=== PATIENT | female | born 1945 | race Caucasian/White ===

== ENCOUNTER 2023-09-08 04:06 | Inpatient (IN) | payer MEDICARE, SELFPAY ==
[2023-09-07 19:15] VITALS: BP 183/98
[2023-09-07 19:31] LABS: % Basophils 0.2 % (0-2); % Eosinophils 0.1 % (0-6); % Immature Granulocytes 0.6 % (0-0.5); % Lymphocytes 3.4 % (20.5-51.1); % Monocytes 3.6 % (1.7-9.3); % Neutrophils 92.1 % (42.2-75.2); Absolute Basophils 0.1 10^3/uL (0-0.2); Absolute Immature Granulocytes 0.1 10^3/uL (0-0.05); Absolute Lymphocytes 0.7 10^3/uL (1.2-3.4); Absolute Monocytes 0.8 10^3/uL (0.1-0.6); Absolute Neutrophils 19.7 10^3/uL (1.4-6.5); Hematocrit 35.6 % (37.0-47.0); Hemoglobin 12.7 g/dL (12.0-16.0); Mean Corp Hgb Conc. 35.7 g/dL (33.0-37.0); Mean Corpuscular Hgb 31.2 pg (27.0-31.0); Mean Corpuscular Volume 87.5 fL (81.0-99.0); Nucleated Red Blood Cells % 0 %; Platelet Count 278 10^3/uL (130-400); Red Blood Cell Count 4.07 10^6/uL (4.20-5.40); Red Cell Dist. Width 12.3 % (11.5-14.5); White Blood Cell Count 21.4 10^3/uL (4.8-10.8)
[2023-09-07 19:46] LABS: Lactic Acid 2.4 mmol/L (0.7-2.0)
[2023-09-07 19:51] LABS: ALT (SGPT) 16 U/L (0-35); AST (SGOT) 21 U/L (14-36); Alkaline Phosphatase 64 U/L (38-126); Blood Urea Nitrogen 25 mg/dl (7-17); Calcium 9.8 mg/dl (8.4-10.2); Carbon Dioxide 25 mmol/L (22-30); Chloride 97 mmol/L (98-107); Glucose 315 mg/dl (70-99); Potassium 4.3 mmol/L (3.5-5.1); Sodium 136 mmol/L (135-145); Total Bilirubin 1.1 mg/dl (0.2-1.3); Total Protein 6.9 g/dl (6.3-8.2); eGFR > 60.00
[2023-09-07] MEDS: ZOFRAN 4 MG IV (20:29)
[2023-09-07 20:40] VITALS: BMI 26.3
[2023-09-07 22:44] VITALS: BP 128/41
[2023-09-07 23:00] VITALS: BP 134/54
[2023-09-07 23:16] LABS: Urine Albumin 1+ (Neg - Trace); Urine Bilirubin Negative (Negative); Urine Character Clear (Clear); Urine Color Yellow; Urine Glucose 3+ (Negative); Urine Ketone 2+ (Negative); Urine Leukocyte Trace (Negative); Urine Nitrite Negative (Negative); Urine Occult Blood Trace (Negative); Urine Specific Gravity 1.015 (<1.030); Urine Urobilinogen Negative (Neg - 1+)
[2023-09-07 23:39] LABS: Urine Squamous Cell >30 /LPF (Few)
[2023-09-07 23:40] LABS: Urine Amorphous Seen; Urine Bacteria Moderate (Negative)
[2023-09-08] VITALS (10 sets, daily range): BP systolic 136–180; BP diastolic 54–79; BMI 26.2
--- NOTE | 2023-09-08 00:04 | ED.GENMED ---
History of Present Illness
General
Chief Complaint: Abdominal Symptoms
Source: patient
Exam Limitations: none
Time Seen by Provider: 09/07/23 21:00
Nursing documentation reviewed up to this point in time: agreed with
Travel History
Have you had any contact with someone who has COVID-19?: No
Do you have any symptoms of coronavirus? Fever > 100 degrees, chills, cough, shortness of breath, sore throat, loss of taste or smell, muscle aches, or headache?: No
History of Present Illness
History of Present Illness:
Patient diagnosed with urinary tract infection and started on antibiotics yesterday, presents to ED secondary to nausea, vomiting, and diarrhea, along with 'not feeling well'. Patient states that her symptoms started last week, similar to when she
has had UTI in the past. Patient denies fever or chills. Denies loss of appetite. Denies inability to urinate. Denies back pain. Denies abdominal pain.
Past History
Past History
ED Past Medical History: HTN, Hypercholesterolemia, NIDDM and Other (DVT, UTI,)
ED Past Surgical History: Other (neck abscess, bilateral cataract surgery)
Social History
Tobacco: Former smoker
Alcohol: None
Drug: None
Personal:
Living: with family
Review of Systems
Review of Systems
Allergies reviewed?: Yes
All Other Systems: ROS reviewed and negative except as documented in HPI and ROS
Constitutional: Reports chills; Denies fever
EENT: Reports no symptoms
Respiratory: Reports no symptoms
Cardiac: Reports no symptoms
ABD/GI: Reports nausea, vomiting and diarrhea; Denies abdominal pain
: Reports no symptoms
Musculoskeletal: Reports no symptoms; Denies back pain
Skin: Reports no symptoms
Neurological: Reports no symptoms
Phy Exam
Physical Exam
Physical Exam:
Physical Exam
General: mild distress, not acutely ill. afebrile
Head: nc/at. eomi
Neck: supple. no meningeal signs.
Heart: s1/s2 regular rate and rhythm, no murmur. equal radial pulses.
Lungs: no acute respiratory distress. clear bilaterally
Abdomen: normal bowel sounds. not tender.
Neuro: alert and oriented. no focal neurological deficits
Skin: no rash
Psychiatric: well kept. interactive and cooperative
Extremities: no edema. no calf tenderness.
Course
Orders/Labs/Results
Orders:
Orders
09/07/23 19:25
Complete Blood Count/With Diff Urgent
Comprehensive Metabolic Panel Urgent
Lactic Acid Urgent
09/07/23 20:27
Ondansetron Injectable [Zofran] 4 mg .ROUTE .STK-MED ONE
09/07/23 20:28
Ondansetron Injectable [Zofran] 4 mg IV NOW STA
09/07/23 21:56
Straight cath- Treatment ONCE
09/07/23 22:03
Blood Culture Q30M
JOVITA Source: Blood/Venous
Specimen Description:
09/07/23 22:58
Urinalysis Reflex To Culture Urgent
Date Specimen was Collected: 09/07/23
Time Specimen was Collected: 22:57
Urine Microscopic Reflex Cult Urgent
Blood Culture Q30M
JOVITA Source: Blood/Venous
Specimen Description:
Urine Culture Urgent
JOVITA Source: U
Specimen Description:
Date Specimen was Collected: 09/07/23
Time Specimen was Collected: 22:57
09/07/23 23:40
COVID-19 Antigen Urgent
Source: Nasal Swab
Influenza A+B Rapid Molecular Urgent
JOVITA Source: Nasal Swab
Specimen Description:
09/08/23 00:04
0.9% Sodium Chloride 500 ml [Nss] 500 ml IV BOLUS
CefTRIAXone [Rocephin] 1,000 mg IV NOW STA
09/08/23 00:11
Sterile Water [Sterile Water For Injection] 10 ml .ROUTE .STK-MED ONE
09/08/23 00:28
Lactic Acid Urgent
Abnormal Lab Results
09/07/23 09/07/23
19:25 22:58
WBC 21.4 H 10^3/uL
(4.8-10.8)
RBC 4.07 L 10^6/uL
(4.20-5.40)
Hct 35.6 L %
(37.0-47.0)
MCH 31.2 H pg
(27.0-31.0)
MPV 11.0 H fL
(7.4-10.4)
Abs Immat Gran (auto) 0.1 H 10^3/uL
(0-0.05)
Absolute Neuts (auto) 19.7 H 10^3/uL
(1.4-6.5)
Absolute Lymphs (auto) 0.7 L 10^3/uL
(1.2-3.4)
Absolute Monos (auto) 0.8 H 10^3/uL
(0.1-0.6)
Immature Gran % 0.6 H %
(0-0.5)
Neutrophils % 92.1 H %
(42.2-75.2)
Lymphocytes % 3.4 L %
(20.5-51.1)
Chloride 97 L mmol/L
(98-107)
BUN 25 H mg/dl
(7-17)
Glucose 315 H mg/dl
(70-99)
Lactic Acid 2.4 H mmol/L
(0.7-2.0)
Urine Ketones 2+ A
(Negative)
Ur Occult Blood Reflex Trace A
(Negative)
Leukocyte Esterase Rfl Trace A
(Negative)
Urine RBC 3-6 A /HPF
(0-2)
Urine Bacteria (Reflex) Moderate A
(Negative)
Urine Glucose 3+ A
(Negative)
Urine Albumin (Reflex) 1+ A
(Neg - Trace)
09/07/23 19:25
09/07/23 19:25
Vital Signs
Initial and Last Documented VS:
Initial Vital Signs
Temp Pulse Resp BP Pulse Ox
98.3 F 96 18 183/98 95
09/07/23 19:15 09/07/23 19:15 09/07/23 19:15 09/07/23 19:15 09/07/23 19:15
Last Documented Vital Signs
Temp Pulse Resp BP Pulse Ox
99.2 F 80 15 142/54 95
09/07/23 20:40 09/08/23 02:30 09/08/23 02:30 09/08/23 00:00 09/08/23 02:30
MDM/Problems Addressed
MDM/Problems Addressed:
History and exam concerning for UTI, with development of bacteremia. Patient will be admitted for IV antibiotics.
*Critical Care Note
Total Time (30-74mins, 75-104mins- exclusive of procedures): Not Applicable
ED Attending Note
-
Portions of this chart may have been created with voice recognition software.� Occasional wrong word or��sound alike� substitutions may have occurred due to the inherent limitations of voice recognition software.
Discharge Plan
Departure
Patient Disposition: Admit
Date of Disposition: 09/08/23
Time of Disposition: 00:25
Admit to: Telemetry
Presentation/result/management discussed w/ accepting MD/DO: Hospitalist
Discharge Problem:
Sepsis, Acute UTI
Prescriptions:
No Action
amlodipine 5 MG tablet
5 mg PO DAILY
Januvia 100 MG tablet
100 mg PO DAILY
methenamine hippurate 1 GRAM tablet
1 g PO DAILY
metformin 1,000 MG tablet
1,000 mg PO BID
glimepiride 4 MG tablet
4 mg PO BID
lisinopril 40 MG tablet
40 mg PO DAILY
cyanocobalamin (vitamin B-12) [Vitamin B-12] 1,000 mcg Tablet Extended Release
1,000 mcg PO DAILY
aspirin 81 mg Tablet,Delayed Release (Dr/Ec)
81 mg PO DAILY
Ferretts IPS 40 mg/15 mL Liquid
10 mg PO DAILY
Patient Comments:
Pt states she is prescribed but due to side effects pt started taking every other day and then stopped.
cholecalciferol (vitamin D3) [Vitamin D3] 25 mcg (1,000 unit) Tablet
25 mcg PO DAILY
lorazepam 0.5 mg Tablet
0.5 mg PO HS
pantoprazole 40 mg Tablet,Delayed Release (Dr/Ec)
40 mg PO DAILY
rosuvastatin 20 mg Tablet
20 mg PO DAILY
acetaminophen 325 mg tablet
650 mg PO Q4 PRN (Reason: mild pain)
Referrals:
Leidy Friend MD [Family Provider] -
Interventions
Interventions:
*Risk Screen - Suicide Last Done: 09/07/23 19:15
*General Assessment Last Done: 09/07/23 19:15
*Neglect/Abuse Screening Last Done: 09/07/23 19:15
ED- Fall Risk Assessment Last Done: 09/07/23 20:59
*ED COVID-19 Vaccine History Last Done: 09/07/23 20:43
[facility] Assessment Last Done: 09/07/23 20:59
[2023-09-08 00:08] LABS: COVID-19 Antigen Negative (Negative)
[2023-09-08] MEDS: ROCEPHIN 1000 MG IV ×2 (00:15→23:06)
[2023-09-08] MEDS: NSS 500 IV (00:23)
--- NOTE | 2023-09-08 00:40 | HPS.HSE ---
Family Physician
-
Family Physician: Leidy Friend
Chief Complaint
-
Nausea and soft stool
History of Present Illness
78F HX recurrent UTI on Hiprex with onset of nausea since last . Usually nausea is indicative of UTI for her. Never had dysuria on frequency. Anne was Dx-ed UTI yesterday and started on PO ABx one dose. morning she had loose BM about 5
times with intractable nausea prompted her to visit ER with daughter.
She felt better following IVF at ER
Received first dose of IV CFTX
Medical History
Past Medical History
Past Medical History: Reports Other
Additional Past Medical History:
Essential hypertension
Hyperlipidemia
Diabetes mellitus
Recurrent UTIs
DVT
Past Surgical History: Reports Other
Additional Past Surgical History:
Pharyngeal Abscess
bilateral cataract surgery
Social History
Tobacco: Former Smoker
Alcohol: None
Drug: None
Personal:
Living: With Family
Family History
Family History: Not pertinent
Allergies / Home Medications
Allergies reflects when Allergies were last updated in [employer].
Home Medications with original date entered in [employer]
Allergy/Medication List:
Allergies
Allergy/AdvReac Type Severity Reaction Status Date / Time
No Known Allergies Allergy Verified 09/07/23 19:14
Home Medications
amlodipine 5 mg tablet 5 mg PO DAILY Blood pressure 05/18/14
sitagliptin phosphate 100 mg tablet (Januvia) 100 mg PO DAILY Diabetes 05/18/14
glimepiride 4 mg tablet 4 mg PO BID Diabetes 10/27/21
lisinopril 40 mg tablet 40 mg PO DAILY Blood pressure 10/27/21
metformin 1,000 mg tablet 1,000 mg PO BID Diabetes 10/27/21
methenamine hippurate 1 gram tablet 1 g PO DAILY Urinary issue 10/27/21
aspirin 81 mg tablet,delayed release 81 mg PO DAILY 04/01/22
cholecalciferol (vitamin D3) 25 mcg (1,000 unit) tablet (Vitamin D3) 25 mcg PO DAILY 04/01/22
cyanocobalamin (vitamin B-12) 1,000 mcg tablet,extended release (Vitamin B-12 ER) 1,000 mcg PO DAILY 04/01/22
iron succinyl-protein complex 40 mg/15 mL oral liquid (Ferretts IPS) 10 mg PO DAILY 04/01/22
acetaminophen 325 mg tablet 650 mg PO Q4 PRN mild pain 09/07/23
lorazepam 0.5 mg tablet 0.5 mg PO HS 09/07/23
pantoprazole 40 mg tablet,delayed release 40 mg PO DAILY 09/07/23
rosuvastatin 20 mg tablet 20 mg PO DAILY 09/07/23
Review of Systems
-
Constitutional: Reports No Symptoms
EENT: Reports No Symptoms
Respiratory: Reports No Symptoms
Cardiac: Reports No Symptoms
Abdomen/GI: Reports No Symptoms
: Denies Dysuria or Frequency
Musculoskeletal: Reports No Symptoms
Skin: Reports No Symptoms
Neurological: Reports Dizzy and Other (nausea )
Endocrine: Reports No Symptoms
Hematologic/Lymphatic: Reports No Symptoms
Psych: Reports No Symptoms
Physical Exam
Vital Signs
Vital Signs
Temp Pulse Resp BP Pulse Ox
99.2 F 93 27 134/54 96
09/07/23 20:40 09/07/23 23:30 09/07/23 23:30 09/07/23 23:00 09/07/23 23:46
Physical Exam
General: No Apparent Distress and Other (not toxic looking ); No Fever
HEENT: NormoCephalic and Anicteric
Respiratory: Clear and Other (tachynic ); No Wheezes, Rales or Rhonchi
Cardiac: S1/S2 and Regular Rhythm; No Tachycardia
GI: Soft, Non Tender, Non Distended and Normal Bowel Sounds
Genito-urinary: No costovertebral tender
Musculoskeletal: No Edema
Skin: Warm
Neuro: AO x 3
Psych: Calm
Laboratory Results
-
09/07/23 19:25
09/07/23 19:25
Laboratory Results
Lactic Acid 2.4 mmol/L (0.7-2.0) H 09/07/23:25
Total Bilirubin 1.1 mg/dl (0.2-1.3) 09/07/23 19:25
AST 21 U/L (14-36) 09/07/23:25
ALT 16 U/L (0-35) 09/07/23:25
Alkaline Phosphatase 64 U/L (38-126) 09/07/23 19:25
Impression/Plan
-
Reviewed VS: T 99.2 BP 180/98 -->135/55 HR 93 Tachypneic POx 96 on 2 L
Data
WCC 21
Cl 97
BUN 25
Nl Cr eGFR > 60
BG 315
Pending LA
UA suspected UTI
BCx sent
UCx sent
NEG Covid Ag
ASSESSMENT & PLAN
Sepsis ( tachypneic, WCC > 10) due to recurrent UTI
HX taveras ABx sen Klebsiella POS UCx
Recurrent UTIs
- BCx, UCx
- IV CFTX
- Held Hiprex
- IV NS s/p 1 L septic bolus followed by 100/H
- Trend T, WCC
Improved Nausea with IVF
- cont IVF
Essential hypertension
- cont. Lisinopril and Norvasc
Hyperlipidemia
- cont pravastatin
DMT2
- held Metformin
- cont. Januvia
- add ISS low
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
DVT Px: SCD
Code: Full
IP TLM
[2023-09-08 00:48] LABS: Lactic Acid 1.6 mmol/L (0.7-2.0)
[2023-09-08 05:23] LABS: Glucose - Point of Care 161 mg/dl (70-99)
[2023-09-08 05:34] LABS: % Basophils 0.2 % (0-2); % Eosinophils 0.1 % (0-6); % Immature Granulocytes 0.5 % (0-0.5); % Lymphocytes 6.7 % (20.5-51.1); % Monocytes 5.1 % (1.7-9.3); % Neutrophils 87.4 % (42.2-75.2); Absolute Immature Granulocytes 0.1 10^3/uL (0-0.05); Absolute Monocytes 0.8 10^3/uL (0.1-0.6); Absolute Neutrophils 13.5 10^3/uL (1.4-6.5); Hematocrit 34.7 % (37.0-47.0); Hemoglobin 12.1 g/dL (12.0-16.0); Mean Corp Hgb Conc. 34.9 g/dL (33.0-37.0); Mean Corpuscular Hgb 30.3 pg (27.0-31.0); Nucleated Red Blood Cells % 0 %; Platelet Count 286 10^3/uL (130-400); Red Blood Cell Count 3.99 10^6/uL (4.20-5.40); Red Cell Dist. Width 12.3 % (11.5-14.5); White Blood Cell Count 15.5 10^3/uL (4.8-10.8)
[2023-09-08] MEDS: NSS 1000 IV ×2 (05:42→18:21)
--- NOTE | 2023-09-08 05:52 | PTCARENOTE ---
pt arrived from ed, aaox3, tele placed, VSS- BP elevated at 164/66 manually- NAREN Christopher notified, see MAR and assessment. call aceves within reach.
[2023-09-08 05:59] LABS: ALT (SGPT) 15 U/L (0-35); AST (SGOT) 23 U/L (14-36); Alkaline Phosphatase 61 U/L (38-126); Blood Urea Nitrogen 23 mg/dl (7-17); Calcium 9.4 mg/dl (8.4-10.2); Carbon Dioxide 26 mmol/L (22-30); Chloride 101 mmol/L (98-107); Estimated Creatinine Clearance 49 ml/min; Glucose 186 mg/dl (70-99); Potassium 4.1 mmol/L (3.5-5.1); Sodium 139 mmol/L (135-145); Total Bilirubin 0.9 mg/dl (0.2-1.3); Total Protein 6.8 g/dl (6.3-8.2); eGFR > 60.00
[2023-09-08 06:00] LABS: Lactic Acid 1.5 mmol/L (0.7-2.0)
[2023-09-08] MEDS: CRESTOR 20 MG PO (08:02)
[2023-09-08] MEDS: PROTONIX 40 MG PO (08:02)
[2023-09-08] MEDS: NORVASC 5 MG PO (08:02)
[2023-09-08] MEDS: JANUVIA 100 MG PO (08:02)
[2023-09-08] MEDS: ASPIR LOW (ENTERIC COATED) 81 MG PO (08:03)
[2023-09-08] MEDS: ZESTRIL 40 MG PO (08:03)
[2023-09-08 08:07] LABS: Glucose - Point of Care 152 mg/dl (70-99)
[2023-09-08 09:34] LABS: Glycohemoglobin (HgbA1c) 9.8 % (4.0-5.6)
--- NOTE | 2023-09-08 12:10 | W.PN.UPDATE ---
Update Note
Progress Note Update
Seen by Dr. Lyons this morning.
Admitted for sepsis and possible UTI.
She had GI symptoms as presenting symptoms. She noticed GI symptoms after going on nitrofurantoin for UTI.
Currently without any GI symptoms. White count improving. Nontoxic looking. Abdomen benign.
Continue with current antibiotics and follow culture data.
patient has been declining Accu-Cheks in the hospital and she also does not check Accu-Cheks at home. Hemoglobin A1c is 9.8. Stressed the importance of following blood sugars closely for improvement. She was also made aware recurrent infections
is one of the common issues of uncontrolled hypertension.
Discussed with the daughter as well at bedside.
[2023-09-08 12:11] LABS: Glucose - Point of Care 116 mg/dl (70-99)
[2023-09-08 16:23] LABS: Glucose - Point of Care 174 mg/dl (70-99)
[2023-09-08] MEDS: AMARYL 4 MG PO (16:32)
--- NOTE | 2023-09-08 17:04 | CM ---
met with patient at bedside.she lives with her spouse in ranch home with 1 [address],her bed and bath is on the first level.she amb I and is I with her adl's.she has no poa.i have confirmed her pcp and pharmacy.patient has never had a vn or been to ip
rehab in past.
patient is adm with sepsis/uti on iv rocephin and ivf.she has had recurrent uti's.
Plan:discharge home with no needs.
[2023-09-08] MEDS: ATIVAN 0.5 MG PO (21:11)
--- NOTE | 2023-09-08 21:35 | PTCARENOTE ---
Patient refusing bedtime blood sugar check. Noting she will also refused her one in the AM. Education provided to patient about her diabetes and how her A1C is elevated now and it is important to monitor her sugars more closely. Support provided but
patient still refused.
[2023-09-08] MEDS: STERILE WATER FOR INJECTION 10 ML IV (23:06)
[2023-09-09 03:43] VITALS: BP 160/78
[2023-09-09 05:37] LABS: Hemoglobin 10.9 g/dL (12.0-16.0); Mean Corp Hgb Conc. 35.2 g/dL (33.0-37.0); Mean Corpuscular Hgb 31.1 pg (27.0-31.0); Mean Corpuscular Volume 88.6 fL (81.0-99.0); Mean Platelet Volume 10.7 fL (7.4-10.4); Platelet Count 224 10^3/uL (130-400); Red Cell Dist. Width 12.4 % (11.5-14.5); White Blood Cell Count 9.4 10^3/uL (4.8-10.8)
[2023-09-09] MEDS: NSS 1000 IV (05:42)
[2023-09-09 06:00] VITALS: BMI 26.5
[2023-09-09 07:00] VITALS: BP 159/77
[2023-09-09 07:53] LABS: Glucose - Point of Care 158 mg/dl (70-99)
[2023-09-09] MEDS: CRESTOR 20 MG PO (08:30)
[2023-09-09] MEDS: NORVASC 5 MG PO (08:30)
[2023-09-09] MEDS: JANUVIA 100 MG PO (08:30)
[2023-09-09] MEDS: AMARYL 4 MG PO (08:30)
[2023-09-09] MEDS: PROTONIX 40 MG PO (08:31)
[2023-09-09] MEDS: ZESTRIL 40 MG PO (08:31)
[2023-09-09] MEDS: ASPIR LOW (ENTERIC COATED) 81 MG PO (08:31)
[2023-09-09 11:00] VITALS: BP 147/87
[2023-09-09 11:59] LABS: Glucose - Point of Care 287 mg/dl (70-99)
--- NOTE | 2023-09-09 13:52 | W.PN.HOSP.TC ---
Today's Communication/Plan
-
DC after seen by Diabetic nurse educator
Assessment / Plan
Assessment / Plan
Sepsis and possible UTI-patient today without fevers. Normalized white count. Hemodynamically stable.
Possible UTI-patient was on outpatient treatment with nitrofurantoin for UTI. No cultures available. Urinalysis was positive but urine culture showed mixed janelle and nonsignificant bacteriuria indicating of contamination. She is a white count
normalized sepsis parameters improved with cephalosporins I will switch to oral cephalosporin to complete a 5-day course. She was advised to keep an eye out for any recurrence of fevers or any dysuria/frequency.
Acute GI symptoms-unclear if secondary to nitrofurantoin-abdomen benign. Scheduled GI symptoms. Tolerating a diet
Known diabetic-noncompliant with checking blood sugars. She is keen to check the blood sugars. Consult diabetic nurse educator. Continue with the home regimen. Hemoglobin A1c is 9.8. Advised to follow-up with PCP and to readjust medication as
needed when she started to check sugars at home.
Anticipated Discharge: Today
Subjective/Interval History
-
Date of Service: September 09, 2023
Patient feels much improved. No further GI symptoms. Denies dysuria.
Tolerating diet.
No fever or chills.
Keen to go home.
Objective Data
-
Labs:
Laboratory Results
09/09/23
05:14
WBC 9.4
Hgb 10.9 L
Hct 31.0 L
Plt Count 224 D
Vital Signs:
Vital Signs
Temp Pulse Resp BP Pulse Ox
97.6 F 88 17 147/87 96
09/09/23 11:00 09/09/23 11:00 09/09/23 11:00 09/09/23 11:00 09/09/23 11:00
I&O
02/22/24 02/23/24 02/24/24
06:59 06:59 06:59
Intake Total 2400 / 2400
Balance 2400 / 2400
Review of Systems
-
Respiratory: Denies Trouble Breathing
Cardiac: Denies Chest Pain
Neuro: Denies Dizzy
Physical Exam
-
General: No Apparent Distress
HEENT: Moist Mucous Membranes
Respiratory: Clear to Auscultation
Cardiac: Regular Rhythm and S1/S2
GI: Soft, Nontender, Nondistended and Normal Bowel Sounds
Neuro: AO x 3
Psych: Calm
Data Reviewed
-
Labs: Labs Reviewed by me
--- NOTE | 2023-09-09 13:57 | W.DS.TRANS ---
DC Summary - Dry Goods Clerk
-
Discharge Instructions:
Discharge Diagnosis/Procedures Possible UTI; Poorly controlled DM
Diet Diabetic, Carb Controlled
Activity As tolerated
Driving Restrictions As prior to admission
Bathing Restrictions None
Instructions:
Stand-Alone Forms:
Changes to Home Medications: Yes
Discharge Medications:
DC Medications w/original date entered in [employer]
amlodipine 5 mg tablet 5 mg PO DAILY Blood pressure 05/18/14
sitagliptin phosphate 100 mg tablet (Januvia) 100 mg PO DAILY Diabetes 05/18/14
glimepiride 4 mg tablet 4 mg PO BID@0800,1700 Diabetes 10/27/21
lisinopril 40 mg tablet 40 mg PO DAILY Blood pressure 10/27/21
metformin 1,000 mg tablet 1,000 mg PO BID@0800,1700 Diabetes 10/27/21
methenamine hippurate 1 gram tablet 1 g PO DAILY Urinary issue 10/27/21
aspirin 81 mg tablet,delayed release 81 mg PO DAILY Blood Clot Prevention/Tx 04/01/22
cholecalciferol (vitamin D3) 25 mcg (1,000 unit) tablet (Vitamin D3) 25 mcg PO DAILY Supplement 04/01/22
cyanocobalamin (vitamin B-12) 1,000 mcg tablet,extended release (Vitamin B-12 ER) 1,000 mcg PO DAILY Supplement 04/01/22
iron succinyl-protein complex 40 mg/15 mL oral liquid ([facility] IPS) 10 mg PO DAILY 04/01/22
acetaminophen 325 mg tablet 650 mg PO Q4 PRN mild pain 09/07/23
lorazepam 0.5 mg tablet 0.5 mg PO HS Mental Health/Anxiety 09/07/23
pantoprazole 40 mg tablet,delayed release 40 mg PO DAILY Gastrointestinal Issue 09/07/23
rosuvastatin 20 mg tablet 20 mg PO DAILY High Cholesterol 09/07/23
cephalexin 500 mg capsule 500 mg PO QID #16 caps 09/09/23
Home Medication Changes
New medication-Keflex
Pending Results: No
[2023-09-09 15:00] VITALS: BP 163/83
--- NOTE | 2023-09-09 15:19 | PN.DE ---
Diabetes Education
- -
Diabetes Education:
Met with Ms. Kirk at the bedside for Diabetes education and provide instructions for glucose monitor use at home. Pt declined stating that ' I don't want that' She states that she would like to speak to her PCP about getting a CGM. Provide patient
with Diabetes education booklet and office number and encouraged pt to call should she change her mind about using the hand held glucose monitor upon discharge.
Updated Pt's primary team- Dr. Duong
--- NOTE | 2023-09-09 15:48 | PTCARENOTE ---
RN Flow Medical Office Professional Instructor.-Patient cleared for d/c. Patient states that her daughter wants to be present for d/c instructions. Patient called daughter who said she would be to hospital to pick her up in about 1 hour. Edie patient's daughter given this
nurses call back number and she was instructed to park at [facility] and come into d/c lounge for dc instructions.
--- NOTE | 2023-09-09 16:49 | CM ---
patient stable for discharge home with no needs.patient signed medicare letter.
--- NOTE | 2023-09-10 17:23 | W.DCSUMMARY ---
Addendum entered and electronically signed by Gonzales Duong MD 09/16/23 10:46:
Correction in second paragraph
she does not have any symtoms ( not G use symptoms)
Original Note:
Discharge Summary
Discharge Data
Date of Admission: 09/08/23
Date of Discharge: 09/09/23
-
Pending Results: No
Hospital Course
Primary diagnosis:
Sepsis
Possible urinary tract infection
Secondary diagnosis:
Diabetes mellitus type 2 with uncontrolled hyperglycemia
Hospital course: Patient with a recurrent UTI ,is was on treatment with nitrofurantoin for UTI presented with GI symptoms. GI symptoms after going on nitrofurantoin. She was having nausea vomiting and diarrhea. She was not feeling well. It was
short and self-limiting. She leukocytosis and tachypnea concerning for sepsis.
She responded well to fluids and IV antibiotics. White count normalized. Urinalysis was positive but urine culture showed nonsignificant bacteriuria and mixed janelle suggestive of contamination. She did not have any G use symptoms. Clinical
picture cannot completely exclude possible UTI. With response to ceftriaxone she was switched to oral antibiotics and was discharged home.
She is known diabetic on oral medication but does not check blood sugars. Her hemoglobin A1c was 9.8. I encouraged her strongly to learn to check blood sugars at home but she wants to follow with PCP to get a continuous glucometer set up. Her
blood sugars are mostly less than 180 here. She was stressed about the importance of diet. She was resumed on her home oral regimen and advised to follow with PCP.
Consultants on board:
Discharge Plan
-
Patient Disposition: Home (Routine Discharge)
Discharge Diagnosis/Procedures: Possible UTI; Poorly controlled DM
Diet: Diabetic, Carb Controlled
Activity: As tolerated
Driving Restrictions: As prior to admission
Bathing Restrictions: None
Referrals:
Leidy Friend MD [Family Provider] - in less than 1 week
Prescriptions:
New
cephalexin 500 mg capsule
500 mg PO QID Qty: 16 0RF
Continued
amlodipine 5 MG tablet
5 mg PO DAILY
Januvia 100 MG tablet
100 mg PO DAILY
methenamine hippurate 1 GRAM tablet
1 g PO DAILY
metformin 1,000 MG tablet
1,000 mg PO BID@0800,1700
glimepiride 4 MG tablet
4 mg PO BID@0800,1700
lisinopril 40 MG tablet
40 mg PO DAILY
cyanocobalamin (vitamin B-12) [Vitamin B-12] 1,000 mcg Tablet Extended Release
1,000 mcg PO DAILY
aspirin 81 mg Tablet,Delayed Release (Dr/Ec)
81 mg PO DAILY
Ferretts IPS 40 mg/15 mL Liquid
10 mg PO DAILY
Patient Comments:
Pt states she is prescribed but due to side effects pt started taking every other day and then stopped.
cholecalciferol (vitamin D3) [Vitamin D3] 25 mcg (1,000 unit) Tablet
25 mcg PO DAILY
lorazepam 0.5 mg Tablet
0.5 mg PO HS
pantoprazole 40 mg Tablet,Delayed Release (Dr/Ec)
40 mg PO DAILY
rosuvastatin 20 mg Tablet
20 mg PO DAILY
acetaminophen 325 mg tablet
650 mg PO Q4 PRN (Reason: mild pain)
Discharge Orders:
Discharge Patient (As Directed); Ordered 09/09/23
Ordered By: Gonzales Duong
Discharge Date and Time
Discharge Date/Time: 09/09/23 15:54
== END 2023-09-09 15:54 | disposition home or self-care (01) | DRG 872 ==
LOC: 3 WEST ACU 04:06
PROVIDERS: Emergency Medicine; ADMITTING PHYSICIAN Internal Medicine; ATTENDING PHYSICIAN Internal Medicine; EMERGENCY PHYSICIAN Emergency Medicine; FAMILY PHYSICIAN Family Medicine
DX: A41.9 Sepsis, unspecified organism (principal); N39.0 Urinary tract infection, site not specified; Z87.891 Personal history of nicotine dependence; Z87.440 Personal history of urinary (tract) infections; I10 Essential (primary) hypertension; E11.65 Type 2 diabetes mellitus with hyperglycemia; Z11.52 Encounter for screening for COVID-19
CPT/HCPCS: 80053; 81003; 81015; 82962; 83036; 83605; 85025; 85027; 87040; 87086; 87502; 87811; 96374; 96375; 99284

== ENCOUNTER 2024-09-16 10:57 | Emergency (ER) | payer MEDICARE, SELFPAY ==
[2024-09-16 11:02] VITALS: BP 186/103
[2024-09-16 11:33] VITALS: BP 162/86; BMI 26.1
[2024-09-16 11:44] LABS: % Basophils 0.3 % (0-2); % Eosinophils 0.2 % (0-6); % Immature Granulocytes 0.3 % (0-0.5); % Lymphocytes 17.5 % (20.5-51.1); % Monocytes 5.6 % (1.7-9.3); % Neutrophils 76.1 % (42.2-75.2); Absolute Monocytes 0.6 10^3/uL (0.1-0.6); Absolute Neutrophils 8.8 10^3/uL (1.4-6.5); Hematocrit 36.3 % (37.0-47.0); Hemoglobin 12.6 g/dL (12.0-16.0); Mean Corp Hgb Conc. 34.7 g/dL (33.0-37.0); Mean Corpuscular Hgb 30.1 pg (27.0-31.0); Mean Corpuscular Volume 86.8 fL (81.0-99.0); Mean Platelet Volume 11.4 fL (7.4-10.4); Nucleated Red Blood Cells % 0 %; Platelet Count 298 10^3/uL (130-400); Red Blood Cell Count 4.18 10^6/uL (4.20-5.40); Red Cell Dist. Width 12.1 % (11.5-14.5); White Blood Cell Count 11.5 10^3/uL (4.8-10.8)
[2024-09-16 11:53] LABS: Urine Albumin 3+ (Neg - Trace); Urine Bilirubin Negative (Negative); Urine Character Clear (Clear); Urine Color Yellow; Urine Glucose Negative (Negative); Urine Ketone Negative (Negative); Urine Leukocyte 2+ (Negative); Urine Nitrite Negative (Negative); Urine Occult Blood 1+ (Negative); Urine Urobilinogen Negative (Neg - 1+)
[2024-09-16 11:56] LABS: ALT (SGPT) 14 U/L (0-35); AST (SGOT) 18 U/L (14-36); Albumin 4.2 g/dl (3.5-5.0); Alkaline Phosphatase 69 U/L (38-126); Blood Urea Nitrogen 22 mg/dl (7-17); Calcium 10.3 mg/dl (8.4-10.2); Carbon Dioxide 26 mmol/L (22-30); Chloride 102 mmol/L (98-107); Estimated Creatinine Clearance 48 ml/min; Glucose 201 mg/dl (70-99); Lipase 129 U/L (23-300); Potassium 4.3 mmol/L (3.5-5.1); Sodium 139 mmol/L (135-145); Total Bilirubin 1.1 mg/dl (0.2-1.3); Total Protein 7.2 g/dl (6.3-8.2); eGFR > 60.00
[2024-09-16 12:00] VITALS: BP 158/68
[2024-09-16 12:06] LABS: Troponin I < 0.012 ng/ml
[2024-09-16 12:17] LABS: Urine Mucus Few; Urine Squamous Cell >30 /LPF (Few)
[2024-09-16 12:18] LABS: Urine Amorphous Seen
[2024-09-16 12:20] LABS: Urine Bacteria Moderate (Negative); Urine Red Blood Cell 0-2 /HPF (0-2)
[2024-09-16 13:00] VITALS: BP 168/53
--- NOTE | 2024-09-16 13:04 | ED.GENMED ---
History of Present Illness
General
Chief Complaint: Abdominal Symptoms
Source: patient and family
Exam Limitations: none
Time Seen by Provider: 09/16/24 11:53
Nursing documentation reviewed up to this point in time: agreed with
History of Present Illness
History of Present Illness:
Patient is an 79-year-old female with past medical history of hypertension, hyperlipidemia, previous DVT, diabetes, currently on Januvia, glimepiride, metformin, who presents to the emergency department accompanied by her daughter for evaluation of
nausea and diarrhea. Daughter reports that the patient had been complaining of diarrhea so she discussed with her primary care provider. Patient's primary care provider thought it was due to the patient taking metformin 100 mg twice daily. She
switched the patient's metformin to 750 mg extended release twice daily. Patient started 3 days ago but 1 day after starting it, she developed diarrhea which worsened over the past 3 days. Daughter reports that the patient was up multiple times
last night with voluminous amounts of watery diarrhea. Patient also has reportedly complained of increasing nausea over the past several months. Patient reports she can feel the nausea in her midepigastrium but denies pain. Patient denies
vomiting. Patient reports she has been on pantoprazole for at least the past 3 years without significant proved in her symptoms. Patient reports she is still able to eat and drink and states that when she eats, her nausea actually improves.
Patient denies recent fevers, chills, chest pain, shortness of breath, urinary symptoms. However, daughter is concerned for urinary tract infection as she reports that the patient's primary complaint with urinary tract infections is often nausea.
Patient denies any known sick contacts, denies any recent travel, denies any recent antibiotic use.
Past History
Past History
ED Past Medical History: HTN, Hypercholesterolemia, NIDDM and Other (DVT, UTI,)
ED Past Surgical History: Other (neck abscess, bilateral cataract surgery)
Social History
Tobacco: Former smoker
Alcohol: None
Drug: None
Personal:
Living: with family
Review of Systems
Review of Systems
All Other Systems: Not applicable
Constitutional: Reports no symptoms
EENT: Reports no symptoms
Respiratory: Reports no symptoms
Cardiac: Reports no symptoms
ABD/GI: Reports nausea and diarrhea; Denies abdominal pain or vomiting
: Reports no symptoms
Musculoskeletal: Reports no symptoms
Skin: Reports no symptoms
Neurological: Reports no symptoms
Endocrine: Reports no symptoms
Hematologic/Lymphatic: Reports no symptoms
Psychiatric: Reports no symptoms
Phy Exam
General Physical Exam
General Presentation: well appearing and no apparent distress
General Skin: warm and dry
General Habitus: normal
General Mental: alert
General Hydration: appears well hydrated
ENT Exam
ENT Exam: EOMI, pharynx normal, neck supple and normocephalic
Eye Exam
Eye Exam: PERRL, cornea clear and conjunctiva normal
Cardiovascular Exam
Cardiovascular Exam: regular rate/rhythm, no edema, no murmur and normal peripheral pulses
Pulmonary Exam
Pulmonary Exam: lungs clear, no respiratory distress, no rales, no crackles, no rhonchi, no stridor, no wheezing and no cough
Gastrointestinal Exam
Gastrointestinal Exam: normal bowel sounds, non tender, soft, no organomegaly, no pulsatile mass and non distended
Neurological Exam
Neurological Exam: alert, oriented x3, no motor deficits and speech normal
Musculoskeletal Exam
Musculoskeletal Exam: full ROM and no edema
Skin Exam
Skin Exam: normal color, warm/dry, no rash and no petechia
Psychiatric Exam
Psychiatric Exam: normal mood/affect
Course
Orders/Labs/Results
Orders:
Orders
09/16/24 11:03
EKG [Electrocardiogram (*1)] Urgent
Reason for Study: Abdominal Pain
EKG- Treatment ONCE
09/16/24 11:20
Complete Blood Count/With Diff Urgent
Comprehensive Metabolic Panel Urgent
Lipase Urgent
Troponin I Urgent
09/16/24 11:36
Urinalysis Reflex To Culture Urgent
Date Specimen was Collected: 09/16/24
Time Specimen was Collected: 11:29
Urine Microscopic Reflex Cult Urgent
Urine Culture Urgent
JOVITA Source: U
Specimen Description:
Date Specimen was Collected: 09/16/24
Time Specimen was Collected: 11:29
09/16/24 13:09
Cephalexin Monohydrate [Keflex] 500 mg PO NOW STA
Abnormal Lab Results
09/16/24 09/16/24
11:20 11:36
WBC 11.5 H 10^3/uL
(4.8-10.8)
RBC 4.18 L 10^6/uL
(4.20-5.40)
Hct 36.3 L %
(37.0-47.0)
MPV 11.4 H fL
(7.4-10.4)
Absolute Neuts (auto) 8.8 H 10^3/uL
(1.4-6.5)
Neutrophils % 76.1 H %
(42.2-75.2)
Lymphocytes % 17.5 L %
(20.5-51.1)
BUN 22 H mg/dl
(7-17)
Glucose 201 H mg/dl
(70-99)
Calcium 10.3 H mg/dl
(8.4-10.2)
Ur Occult Blood Reflex 1+ A
(Negative)
Leukocyte Esterase Rfl 2+ A
(Negative)
Urine Bacteria (Reflex) Moderate A
(Negative)
Urine Albumin (Reflex) 3+ A
(Neg - Trace)
09/16/24 11:20
09/16/24 11:20
Vital Signs
Initial and Last Documented VS:
Initial Vital Signs
Temp Pulse Resp BP Pulse Ox
98.3 F 101 18 186/103 97
09/16/24 11:02 09/16/24 11:02 09/16/24 11:02 09/16/24 11:02 09/16/24 11:02
Last Documented Vital Signs
Temp Pulse Resp BP Pulse Ox
98.3 F 77 18 168/53 96
09/16/24 11:02 09/16/24 13:00 09/16/24 13:00 09/16/24 13:00 09/16/24 13:00
*Critical Care Note
Total Time (30-74mins, 75-104mins- exclusive of procedures): Not Applicable
Update Note
Update Note:
Patient is an 79-year-old female with past medical history as noted including diabetes, with recent nausea and diarrhea which was felt to be due to her metformin. Patient's metformin was subsequently adjusted to an extended release version. This
seemed to cause additional GI symptoms such as increased flatulence. Therefore, the patient was switched back to her usual dose of metformin but continues to have persistent nausea and has also developed diarrhea. Patient has not had any episodes
of diarrhea since last night, she has not taken her metformin today. Patient reports the nausea is intermittent. She denies any abdominal pain. On arrival, patient is hypertensive, slightly tachycardic to 101 bpm, afebrile. On exam, patient is
very well-appearing, she is in no acute distress, she appears well-hydrated, she has a benign abdomen. Labs were notable for a very mild leukocytosis of 11.5 as well as a hyperglycemia to 201 however there is no evidence of DKA at this time.
Patient's urinalysis is borderline for infection, it does appear contaminated. Patient has a benign abdomen, do not feel that imaging of her abdomen is indicated at this time. Patient has no current symptoms, no diarrhea, no nausea. Patient's
daughter is concerned about UTI given the fact that the patient's previous urinary tract infections have presented with nausea. Will cover with a course of oral antibiotics. Feel that the patient is safe for discharge to home with close outpatient
PCP follow-up for further adjustment of her diabetic medications as I think this is the most likely etiology of her symptoms. In addition, will prescribe a few tabs of ondansetron ODT to take for nausea if needed. Patient encouraged to follow-up
closely and given strict return precautions, she and her daughter expressed understanding of the plan and agreed.
ED Attending Note
-
Portions of this chart may have been created with voice recognition software.� Occasional wrong word or��sound alike� substitutions may have occurred due to the inherent limitations of voice recognition software.
Discharge Plan
Departure
Patient Disposition: Home (Routine Discharge)
Date of Disposition: 09/16/24
Time of Disposition: 13:09
Patient with high blood pressure during this ER visit?: Yes
Condition: Good
Covid-19: Not Applicable
Discharge Problem:
Acute UTI, Diarrhea, Nausea
Instructions: Nausea and vomiting in adults, Urinary tract infection in adults - ED discharge instructions, Acute Diarrhea
Prescriptions:
New
cephalexin 500 mg capsule
500 mg PO BID 7 Days Qty: 14 0RF
ondansetron 4 mg tablet,disintegrating
4 mg PO TIDPRN PRN (Reason: nausea/vomiting) Qty: 5 0RF
No Action
amlodipine 5 MG tablet
5 mg PO DAILY
Januvia 100 MG tablet
100 mg PO DAILY
methenamine hippurate 1 GRAM tablet
1 g PO DAILY
metformin 1,000 MG tablet
1,000 mg PO BID@0800,1700
glimepiride 4 MG tablet
4 mg PO BID@0800,1700
lisinopril 40 MG tablet
40 mg PO DAILY
cyanocobalamin (vitamin B-12) [Vitamin B-12] 1,000 mcg Tablet Extended Release
1,000 mcg PO DAILY
aspirin 81 mg Tablet,Delayed Release (Dr/Ec)
81 mg PO DAILY
Ferretts IPS 40 mg/15 mL Liquid
10 mg PO DAILY
Patient Comments:
Pt states she is prescribed but due to side effects pt started taking every other day and then stopped.
cholecalciferol (vitamin D3) [Vitamin D3] 25 mcg (1,000 unit) Tablet
25 mcg PO DAILY
lorazepam 0.5 mg Tablet
0.5 mg PO HS
pantoprazole 40 mg Tablet,Delayed Release (Dr/Ec)
40 mg PO DAILY
rosuvastatin 20 mg Tablet
20 mg PO DAILY
acetaminophen 325 mg tablet
650 mg PO Q4 PRN (Reason: mild pain)
cephalexin 500 mg capsule
500 mg PO QID Qty: 16 0RF
Referrals:
Leidy Friend MD [Family Provider] -
Activity Restrictions/Additional Instructions:
You are seen emergency department for evaluation of nausea and diarrhea. Your blood work and other dangerous abnormalities. Your urine studies did not show evidence of urinary tract infection therefore we are starting on a course of oral
antibiotics today. Please take all the antibiotics exactly as prescribed if you start to feel better. Please try to get plenty of rest and drink plenty fluids. Please follow close with your primary care provider within 1 to 2 days to discuss your
recent symptoms and a possible change to your metformin. Please return the emergency department if you develop lightheadedness, dizziness, chest pain, difficulty breathing, severe abdominal pain, persistent vomiting, blood in your stool, or for any
other worsening or concerning symptoms.
Interventions
Interventions:
*Risk Screen - Suicide Last Done: 09/16/24 11:02
*General Assessment Last Done: 09/16/24 11:02
*Neglect/Abuse Screening Last Done: 09/16/24 13:28
ED- Fall Risk Assessment Last Done: 09/16/24 11:34
*ED COVID-19 Vaccine History Last Done: 09/16/24 11:02
*Nursing Disposition Last Done: 09/16/24 13:29
[facility] Assessment Last Done: 09/16/24 11:34
Discharge Date and Time
Discharge Date/Time: 09/16/24 13:53
Print Language: OCCITAN
[2024-09-16] MEDS: KEFLEX 500 MG PO (13:20)
== END 2024-09-16 13:53 | disposition home or self-care (01) ==
LOC: EMR 10:57
PROVIDERS: EMERGENCY PHYSICIAN Emergency Medicine; FAMILY PHYSICIAN Family Medicine
DX: N39.0 Urinary tract infection, site not specified (principal); R19.7 Diarrhea, unspecified; R11.0 Nausea; E11.65 Type 2 diabetes mellitus with hyperglycemia; I10 Essential (primary) hypertension; E78.00 Pure hypercholesterolemia, unspecified; M19.90 Unspecified osteoarthritis, unspecified site; Z79.84 Long term (current) use of oral hypoglycemic drugs; Z86.718 Personal history of other venous thrombosis and embolism; Z87.891 Personal history of nicotine dependence; Z87.440 Personal history of urinary (tract) infections
CPT/HCPCS: 99284; 80053; 81003; 81015; 83690; 84484; 85025; 87086; 93005

== ENCOUNTER 2024-11-22 11:26 | Emergency (ER) | payer MEDICARE, SELFPAY ==
[2024-11-22] VITALS (8 sets, daily range): BP systolic 154–174; BP diastolic 62–95; BMI 26.3
[2024-11-22 12:08] LABS: % Basophils 0.2 % (0-2); % Eosinophils 0.1 % (0-6); % Immature Granulocytes 0.4 % (0-0.5); % Lymphocytes 14.3 % (20.5-51.1); % Monocytes 5.3 % (1.7-9.3); % Neutrophils 79.7 % (42.2-75.2); Absolute Lymphocytes 1.6 10^3/uL (1.2-3.4); Absolute Monocytes 0.6 10^3/uL (0.1-0.6); Absolute Neutrophils 8.8 10^3/uL (1.4-6.5); Hematocrit 39.5 % (37.0-47.0); Hemoglobin 13.8 g/dL (12.0-16.0); Mean Corp Hgb Conc. 34.9 g/dL (33.0-37.0); Mean Corpuscular Hgb 30.5 pg (27.0-31.0); Mean Corpuscular Volume 87.4 fL (81.0-99.0); Mean Platelet Volume 11.6 fL (7.4-10.4); Nucleated Red Blood Cells % 0 %; Platelet Count 287 10^3/uL (130-400); Red Blood Cell Count 4.52 10^6/uL (4.20-5.40); Red Cell Dist. Width 11.9 % (11.5-14.5)
[2024-11-22 12:20] LABS: Urine Albumin 3+ (Neg - Trace); Urine Bilirubin Negative (Negative); Urine Character Clear (Clear); Urine Color Yellow; Urine Glucose 4+ (Negative); Urine Ketone 2+ (Negative); Urine Leukocyte Negative (Negative); Urine Nitrite Negative (Negative); Urine Occult Blood Negative (Negative); Urine Specific Gravity 1.015 (<1.030); Urine Urobilinogen Negative (Neg - 1+)
[2024-11-22 12:21] LABS: ALT (SGPT) 14 U/L (0-35); AST (SGOT) 18 U/L (14-36); Albumin 4.1 g/dl (3.5-5.0); Alkaline Phosphatase 67 U/L (38-126); Blood Urea Nitrogen 16 mg/dl (7-17); Calcium 10.7 mg/dl (8.4-10.2); Carbon Dioxide 28 mmol/L (22-30); Chloride 101 mmol/L (98-107); Glucose 318 mg/dl (70-99); Potassium 4.2 mmol/L (3.5-5.1); Sodium 140 mmol/L (135-145); eGFR > 60.00
--- NOTE | 2024-11-22 13:00 | ED.GENMED ---
History of Present Illness
General
Chief Complaint: Abdominal Symptoms
Time Seen by Provider: 11/22/24 12:37
History of Present Illness
History of Present Illness:
Patient presents to the emergency department with epigastric abdominal discomfort and nausea. Notes that she has a history of GI issues ongoing for the past few months. She had an endoscopy and colonoscopy for this 2 years ago which was notable
for some colonic polyps as well as a hiatal hernia. She takes pantoprazole 40 mg daily. Notes that over the past week she has been having increasing episodes of epigastric discomfort. They are nonexertional. It is not postprandial or related to
food. She has mild nausea but no vomiting. No diarrhea or constipation. No urinary symptoms. No chest pain or shortness of breath.
Past History
Past History
ED Past Medical History: HTN, Hypercholesterolemia, NIDDM and Other (DVT, UTI,)
ED Past Surgical History: Other (neck abscess, bilateral cataract surgery)
Social History
Tobacco: Former smoker
Alcohol: None
Drug: None
Personal:
Living: with family
Phy Exam
Physical Exam
Physical Exam:
GENERAL APPEARANCE: NAD, well developed/ well nourished
EYES lids/conjunctiva normal
EARS/NOSE/THROAT Mucous membranes moist, uvula midline without oral pharyngeal erythema, exudate or swelling
HEAD/NECK normocephalic atraumatic, neck is supple.
RESPIRATORY respiratory effort normal, speaks in full sentences, no accessory muscle use. Lungs clear to auscultation without rhonchi, wheezes, rales
CARDIAC Regular rate and rhythm, no edema.
ABDOMINAL Soft, ND/NT. No pulsatile masses on exam, rebound tenderness, Christian sign or pain over Mcburney's point.
MUSCLES/EXTREMITIES No abnormal range of motion, no swelling.
SKIN Warm, pink and dry. No rashes
NEUROLOGICAL Speech is clear and appropriate. Normal level of consciousness. 5/5 strength in all extremities.
PSYCH Normal mood and affect. Judgement/competence is appropriate
Course
Orders/Labs/Results
Orders:
Orders
11/22/24 11:44
Electrocardiogram (*1) Urgent
Reason for Study: Abdominal Pain
EKG- Treatment ONCE
11/22/24 11:55
Complete Blood Count/With Diff Urgent
Comprehensive Metabolic Panel Urgent
Lipase Urgent
Comment: ADD ON
Urinalysis Reflex To Culture Urgent
Date Specimen was Collected: 11/22/24
Time Specimen was Collected: 11:44
Urine Microscopic Reflex Cult Urgent
11/22/24 12:45
Add On- LAB Urgent
Tests Added?: lipase
11/22/24 12:56
CT Abd/Pel (IV only)-DH only Urgent
Comment:
Reason For Exam: diffuse abdominal pain, nausea
11/22/24 13:02
0.9% Sodium Chloride 500 ml [Nss] 500 ml IV BOLUS
Ondansetron Injectable [Zofran] 4 mg IV NOW STA
11/22/24 13:08
Troponin I Urgent
11/22/24 15:43
US Abdomen Limited Urgent
Comment:
Reason For Exam: gallstones on CT, nausea, epigastric pain
Abnormal Lab Results
11/22/24 11/22/24
11:55 14:51
WBC 11.0 H 10^3/uL
(4.8-10.8)
MPV 11.6 H fL
(7.4-10.4)
Absolute Neuts (auto) 8.8 H 10^3/uL
(1.4-6.5)
Neutrophils % 79.7 H %
(42.2-75.2)
Lymphocytes % 14.3 L %
(20.5-51.1)
Glucose 318 H mg/dl
(70-99)
Calcium 10.7 H mg/dl
(8.4-10.2)
Urine Ketones 2+ A
(Negative)
Urine Bacteria (Reflex) Few A
(Negative)
Urine Glucose 4+ A
(Negative)
Urine Albumin (Reflex) 3+ A
(Neg - Trace)
POC Glucose 283 H mg/dl
(70-99)
11/22/24 11:55
11/22/24 11:55
Vital Signs
Initial and Last Documented VS:
Initial Vital Signs
Temp Pulse Resp BP Pulse Ox
98.7 F 97 18 170/84 98
11/22/24 11:40 11/22/24 11:40 11/22/24 11:40 11/22/24 11:40 11/22/24 11:40
Last Documented Vital Signs
Temp Pulse Resp BP Pulse Ox
98.7 F 83 21 168/68 95
11/22/24 11:40 11/22/24 19:01 11/22/24 14:00 11/22/24 19:01 11/22/24 19:01
*Critical Care Note
Total Time (30-74mins, 75-104mins- exclusive of procedures): Not Applicable
ED Attending Note
ED Attending Note
ED Attending Note:
Patient is well-appearing with minimal symptoms at this time. She has no pain and is nontoxic-appearing. She has a benign abdominal exam. Differential diagnosis includes cardiac etiology of the low suspicion without any ST elevation on her EKG,
no chest pain or shortness of breath. Additionally the symptoms are nonexertional making cardiac less likely. Doubt PE given she is on Eliquis. Possibly related to gastritis and/or hiatal hernia that is causing symptoms. Will CT scan her abdomen
today to rule out alternative etiology but she will likely need close follow-up with the GI doctor.
-
Portions of this chart may have been created with voice recognition software.� Occasional wrong word or��sound alike� substitutions may have occurred due to the inherent limitations of voice recognition software.
Discharge Plan
Departure
Patient Disposition: Home (Routine Discharge)
Date of Disposition: 11/22/24
Time of Disposition: 18:45
Patient with high blood pressure during this ER visit?: Yes
Discharge Problem:
Abdominal pain, Gallbladder polyp, Nausea, Chronic hyperglycemia
Instructions: Abdominal pain in adults - Discharge instructions
Prescriptions:
New
ondansetron 4 mg tablet,disintegrating
4 mg PO Q8H PRN (Reason: nausea and vomiting) Qty: 14 0RF
No Action
amlodipine 5 MG tablet
5 mg PO DAILY
Januvia 100 MG tablet
100 mg PO DAILY
methenamine hippurate 1 GRAM tablet
1 g PO DAILY
metformin 1,000 MG tablet
1,000 mg PO BID@0800,1700
glimepiride 4 MG tablet
4 mg PO BID@0800,1700
lisinopril 40 MG tablet
40 mg PO DAILY
cyanocobalamin (vitamin B-12) [Vitamin B-12] 1,000 mcg Tablet Extended Release
1,000 mcg PO DAILY
aspirin 81 mg Tablet,Delayed Release (Dr/Ec)
81 mg PO DAILY
Ferretts IPS 40 mg/15 mL Liquid
10 mg PO DAILY
Patient Comments:
Pt states she is prescribed but due to side effects pt started taking every other day and then stopped.
cholecalciferol (vitamin D3) [Vitamin D3] 25 mcg (1,000 unit) Tablet
25 mcg PO DAILY
lorazepam 0.5 mg Tablet
0.5 mg PO HS
pantoprazole 40 mg Tablet,Delayed Release (Dr/Ec)
40 mg PO DAILY
rosuvastatin 20 mg Tablet
20 mg PO DAILY
acetaminophen 325 mg tablet
650 mg PO Q4 PRN (Reason: mild pain)
cephalexin 500 mg capsule
500 mg PO QID Qty: 16 0RF
cephalexin 500 mg capsule
500 mg PO BID 7 Days Qty: 14 0RF
ondansetron 4 mg tablet,disintegrating
4 mg PO TIDPRN PRN (Reason: nausea/vomiting) Qty: 5 0RF
Referrals:
Leidy Friend MD [Family Provider] -
Activity Restrictions/Additional Instructions:
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
return to ER with new or worsening symptoms
Interventions
Interventions:
*Risk Screen - Suicide Last Done: 11/22/24 11:40
*General Assessment Last Done: 11/22/24 11:40
*ED COVID-19 Vaccine History Last Done: 11/22/24 11:40
[facility] Assessment Last Done: 11/22/24 13:14
Discharge Date and Time
Print Language: UGANDAN
[2024-11-22 13:07] LABS: Urine Bacteria Few (Negative); Urine Red Blood Cell 0-2 /HPF (0-2); Urine Squamous Cell 0-2 /LPF (Few); Urine White Cell 0-2 /HPF (0-5)
[2024-11-22] MEDS: NSS 500 IV (13:09)
[2024-11-22] MEDS: ZOFRAN 4 MG IV (13:11)
[2024-11-22 13:42] LABS: Troponin I < 0.012 ng/ml
[2024-11-22 14:53] LABS: Glucose - Point of Care 283 mg/dl (70-99)
[2024-11-22 16:01] LABS: Lipase 112 U/L (23-300)
== END 2024-11-22 19:25 | disposition home or self-care (01) ==
LOC: EMR 11:26
PROVIDERS: Emergency Medicine; EMERGENCY PHYSICIAN Emergency Medicine; FAMILY PHYSICIAN Family Medicine
DX: R10.13 Epigastric pain (principal); K82.4 Cholesterolosis of gallbladder; R11.0 Nausea; E11.65 Type 2 diabetes mellitus with hyperglycemia; E78.00 Pure hypercholesterolemia, unspecified; I10 Essential (primary) hypertension; Z79.899 Other long term (current) drug therapy; Z87.891 Personal history of nicotine dependence; Z87.440 Personal history of urinary (tract) infections; Z86.718 Personal history of other venous thrombosis and embolism; Z79.01 Long term (current) use of anticoagulants
CPT/HCPCS: 96374; 99284; 74177; 76705; 80053; 81003; 81015; 82962; 83690; 84484; 85025; 93005; Q9967

== ENCOUNTER → 2024-12-03 14:21 | Outpatient (REF) | payer MEDICARE, SELFPAY ==
[2024-12-03 15:29] LABS: ALT (SGPT) 14 U/L (0-35); AST (SGOT) 16 U/L (14-36); Albumin 4.7 g/dl (3.5-5.0); Alkaline Phosphatase 59 U/L (38-126); Blood Urea Nitrogen 15 mg/dl (7-17); Calcium 10.7 mg/dl (8.4-10.2); Carbon Dioxide 26 mmol/L (22-30); Chloride 104 mmol/L (98-107); Glucose 303 mg/dl (70-99); HDL Cholesterol 55 mg/dl; LDL Cholesterol, Calculated 66 mg/dl; Potassium 4.3 mmol/L (3.5-5.1); Sodium 140 mmol/L (135-145); Total Cholesterol 184 mg/dl (50-199); Total Protein 7.8 g/dl (6.3-8.2); Triglyceride 315 mg/dl (10-149); Very Low Density Lipoprotein 63 mg/dl (0-30); eGFR > 60.00
[2024-12-03 15:34] LABS: % Basophils 0.2 % (0-2); % Eosinophils 0.3 % (0-6); % Immature Granulocytes 0.3 % (0-0.5); % Lymphocytes 17.4 % (20.5-51.1); % Monocytes 5.9 % (1.7-9.3); % Neutrophils 75.9 % (42.2-75.2); Absolute Monocytes 0.7 10^3/uL (0.1-0.6); Absolute Neutrophils 8.7 10^3/uL (1.4-6.5); Hematocrit 37.5 % (37.0-47.0); Hemoglobin 13.2 g/dL (12.0-16.0); Mean Corp Hgb Conc. 35.2 g/dL (33.0-37.0); Mean Corpuscular Hgb 30.9 pg (27.0-31.0); Mean Corpuscular Volume 87.8 fL (81.0-99.0); Mean Platelet Volume 12.2 fL (7.4-10.4); Nucleated Red Blood Cells % 0 %; Platelet Count 279 10^3/uL (130-400); Red Blood Cell Count 4.27 10^6/uL (4.20-5.40); Red Cell Dist. Width 12.1 % (11.5-14.5); White Blood Cell Count 11.5 10^3/uL (4.8-10.8)
[2024-12-03 15:38] LABS: Total Iron Binding Capacity 396 ug/dl (265-497)
[2024-12-03 15:40] LABS: Iron 121 ug/dl (37-170); Percent Saturation 30 % (20-50)
[2024-12-03 16:28] LABS: TSH Reflex To Free T4 2.34 uIU/ml (0.47-4.68)
[2024-12-03 16:32] LABS: Ferritin 26.7 ng/ml (11.1-264.0)
[2024-12-04 08:08] LABS: Glycohemoglobin (HgbA1c) 11.4 % (4.0-5.6)
== END ==
LOC: REG 14:21
PROVIDERS: ATTENDING PHYSICIAN Family Medicine
DX: E11.319 Type 2 diabetes mellitus with unspecified diabetic retinopathy without macular edema (principal); E78.2 Mixed hyperlipidemia; I10 Essential (primary) hypertension; D72.829 Elevated white blood cell count, unspecified; E11.69 Type 2 diabetes mellitus with other specified complication; I82.401 Acute embolism and thrombosis of unspecified deep veins of right lower extremity; D50.0 Iron deficiency anemia secondary to blood loss (chronic); R80.9 Proteinuria, unspecified
CPT/HCPCS: 36415; 80053; 80061; 82728; 83036; 83540; 83550; 84443; 85025

== ENCOUNTER → 2024-12-06 10:10 | Outpatient (REF) | payer MEDICARE, SELFPAY ==
[2024-12-06 12:04] LABS: Urine Albumin 2+ (Neg - Trace); Urine Bilirubin Negative (Negative); Urine Character Clear (Clear); Urine Color Yellow; Urine Glucose 4+ (Negative); Urine Ketone Negative (Negative); Urine Leukocyte Negative (Negative); Urine Nitrite Negative (Negative); Urine Occult Blood Negative (Negative); Urine Specific Gravity 1.015 (<1.030); Urine Urobilinogen Negative (Neg - 1+)
[2024-12-06 14:17] LABS: Microalbumin, Random Urine 31.4 mg/dl (0.6-1.7); Microalbumin/creatinine Ratio 443.5 mg/g
[2024-12-06 15:08] LABS: Urine Squamous Cell >30 /LPF (Few)
[2024-12-06 15:10] LABS: Urine Amorphous Seen
[2024-12-06 15:11] LABS: Urine Red Blood Cell 0-2 /HPF (0-2)
== END ==
LOC: REG 10:10
PROVIDERS: ATTENDING PHYSICIAN Family Medicine
DX: E11.319 Type 2 diabetes mellitus with unspecified diabetic retinopathy without macular edema (principal); E78.2 Mixed hyperlipidemia; I10 Essential (primary) hypertension; D72.829 Elevated white blood cell count, unspecified; E11.69 Type 2 diabetes mellitus with other specified complication; D50.0 Iron deficiency anemia secondary to blood loss (chronic); R80.9 Proteinuria, unspecified
CPT/HCPCS: 81003; 81015; 82043; 82570

== ENCOUNTER → 2024-12-24 10:44 | Outpatient (REF) | payer MEDICARE, SELFPAY | LOC: RAD 10:44 | PROVIDERS: ATTENDING PHYSICIAN Surgery; FAMILY PHYSICIAN Family Medicine | DX: R11.0 Nausea (principal); R10.13 Epigastric pain; K44.9 Diaphragmatic hernia without obstruction or gangrene | CPT/HCPCS: 74246 ==

== ENCOUNTER → 2025-02-14 13:35 | Outpatient (REF) | payer MEDICARE, SELFPAY ==
[2025-02-14 19:29] LABS: Urine Character Clear (Clear)
[2025-02-14 19:43] LABS: Urine Squamous Cell >30 /LPF (Few)
[2025-02-14 19:44] LABS: Urine Red Blood Cell 0-2 /HPF (0-2)
== END ==
LOC: CLAB 13:35
PROVIDERS: ATTENDING PHYSICIAN Family Medicine
DX: Z00.00 Encounter for general adult medical examination without abnormal findings (principal); A41.9 Sepsis, unspecified organism
CPT/HCPCS: 81003; 81015; 87077; 87086; 87147